=== PATIENT | female | born 1960 | race Caucasian/White ===

== ENCOUNTER 2020-01-21 11:14 | Outpatient (CLI) | payer BC, OTHER, SELFPAY ==
[2020-01-21 12:27] LABS: Basophils Percent Auto 0.6 % (0.2-1.2); Eosinophils Absolute Auto 0.1 K/mm3 (0-0.3); Eosinophils Percent Auto 1.7 % (0-4.4); Hematocrit 43.7 % (37.0-47.0); Hemoglobin 14.1 g/dL (12.0-15.0); Immature Granulocyte Absolute 0.02 K/mm3 (0.00-0.031); Immature Granulocyte Percent A 0.3 % (0-0.5); Lymphocytes Absolute Auto 2.35 K/mm3 (0.9-3.2); Lymphocytes Percent Auto 33.5 % (18.3-44.2); Mean Corpuscular HGB Conc 32.3 g/dl (32-36); Mean Corpuscular Hemoglobin 29.1 pg (26-34); Mean Corpuscular Volume 90.1 fl (80-100); Mean Platelet Volume 10.4 fl (7.4-10.4); Monocytes Absolute Auto 0.6 K/mm3 (0.1-0.6); Monocytes Percent Auto 8.1 % (2.6-8.5); Neutrophils Absolute Auto 3.9 K/mm3 (1.3-6.7); Neutrophils Percent Auto 55.8 % (45.5-73.1); Platelet Count Result 177 k/mm3 (150-375); Red Blood Count 4.85 M/mm3 (4.2-5.4); Red Cell Distribution Width 13.2 % (11.5-14.5)
[2020-01-21 12:40] LABS: Alanine Aminotransferase 16 U/L (4-35); Albumin Level 4.6 g/dL (3.5-5.1); Alkaline Phosphatase 70 U/L (38-126); Anion Gap 8 mmol/L (8-16); Aspartate Amino Transferase 23 U/L (14-36); Bilirubin,Total 0.3 mg/dL (0.2-1.3); Blood Urea Nitrogen 15 mg/dL (7-17); Calcium 9.6 mg/dL (8.4-10.2); Carbon Dioxide 29 mmol/L (22-30); Chloride 102 mmol/L (98-107); Cholesterol 171 mg/dL (0-200); Estimated Glomerular Filt Rate > 60; Glucose 94 mg/dL (65-105); HDL Direct 47 mg/dL; Potassium 4.6 mmol/L (3.4-5.0); Sodium 139 mmol/L (137-145); Triglycerides 115 mg/dL (<150)
[2020-01-21 12:51] LABS: LDL Cholesterol Direct 85 mg/dL
[2020-01-25 01:06] LABS: Vitamin D 1,25 (OH)2 Total 53 pg/mL (18-72); Vitamin D2 1,25 (OH)2 <8 pg/mL; Vitamin D3 1,25 (OH)2 53 pg/mL
== END 2020-01-21 11:15 | disposition home or self-care (01) ==
LOC: ANHLAB 11:17
PROVIDERS: PCP Family Medicine; Visit Provider Family Medicine
DX: J44.9 Chronic obstructive pulmonary disease, unspecified (principal); R53.83 Other fatigue; Z85.118 Personal history of other malignant neoplasm of bronchus and lung; Z13.220 Encounter for screening for lipoid disorders
CPT/HCPCS: 36415; 80053; 80061; 82652; 84443; 85025

== ENCOUNTER 2020-02-28 00:11 | Outpatient (CLI) | payer OTHER, SELFPAY ==
[2020-02-28 19:58] LABS: SARS-CoV-2 RNA PCR Negative
== END 2020-02-28 00:12 | disposition home or self-care (01) ==
LOC: ANHCOVIDDT 00:11
PROVIDERS: PCP Family Medicine; Visit Provider Internal Medicine Gastroenterology
DX: Z01.812 Encounter for preprocedural laboratory examination (principal); Z20.828 Contact with and (suspected) exposure to other viral communicable diseases
CPT/HCPCS: 87635; C9803; U0003

== ENCOUNTER 2020-03-01 02:07 | Day surgery (SDC) | payer OTHER, SELFPAY ==
[2020-02-23 13:36] VITALS: BMI 27.6
[2020-03-01 08:35] VITALS: BP 124/97; PULSE 85; RESP 18; TEMP 36.3; O2SAT 99; BMI 27.6
[2020-03-01] MEDS: LACTATED RINGERS 1,000 ML 150 ML IV CONT (08:43)
--- NOTE | 2020-03-01 08:52 | WPDANESEPPF ---
Anes - Initial Pre Proc Eval Procedure: Operation Date: 03/01/20 10:00 Proposed Procedures p Screening Colonoscopy - Berhane Messina MD Date/Time: 03/01/20 08:52 Surgeon: Berhane Messina MD Pre Op Diagnosis: neoplasm screening Patient Data Age: 59 Gender: F Height: 5 ft 4 in Weight: 73 kg Last Vital Signs Temp 36.3 C L 03/01/20 08:35 Pulse 85 03/01/20 08:35 Resp 18 03/01/20 08:35 BP 124/97 H 03/01/20 08:35 Pulse Ox 99 03/01/20 08:35 Allergies Allergy/AdvReac Type Severity Reaction Status Date / Time Sulfa (Sulfonamide Allergy Severe HIVES AND Verified 03/01/20 08:34 Antibiotics) THROAT SWELLING tuberculin, purified protein Allergy Severe TB SKIN Verified 03/01/20 08:34 deriva TEST= SEVERE HIVES,DIFFICULTY BREATHING Home Medications Medication Instructions Recorded Confirmed Type umeclidinium 62.5 mcg/actuation 1 inh INHALATION DAILY #3 each 01/17/20 02/23/20 Rx blister powder for inhalation varenicline 1 mg tablet 1 mg PO BID #180 tablet 01/17/20 02/23/20 Rx peg 3350-electrolytes 236 240 ml PO Q10M #4000 ml 01/18/20 Rx gram-22.74 gram-6.74 gram-5.86 gram solution Patient hx anesthesia problems: none Family hx anesthesia problems: none PMFSH Past Medical History Medical History COPD (chronic obstructive pulmonary disease) COPD (chronic obstructive pulmonary disease) FHx: colon cancer Lung cancer Tobacco abuse Family History Family History Grandparent Family history of malignant neoplasm of breast Family history of malignant neoplasm of ovary Mother Family history of malignant neoplasm of breast in first degree relative Family history of malignant neoplasm of ovary, Onset Age: 70 Father Family history of emphysema Other Family history of malignant neoplasm of male breast Social History Social History Social History: Smoking packs per day: 1 Smoking cigarettes per day: 20.0 Years smoked: 45 Smoking pack-years: 45.00 Smoking status: Current every day smoker Tobacco type: cigarettes Second hand tobacco smoke exposure: No Smoking end date: 04/28/14 Alcohol intake: never Substance use: current Substance use type: does not use Living arrangements: with family Gender identity (if verbalized by the patient): Female Spiritual care concerns: No Anes - Eval Final PreProcedure Day of Procedure 03/01/20 08:52 Patient weight: overweight Heart: regular rate and rhythm Lungs: decreased breath sounds Airway: Mallampati scale class II Neurological: alert and oriented Last oral intake: >/= 8 hours ASA classification: III Emergent: no Anesthetic plan: proceed Anesthesia type and monitoring: general GIVS and standard monitoring Informed Consent: The patient's anesthetic plan and its attendant risks and benefits were discussed with the patient/family/POA. Questions were solicited and answers provided to the satisfaction of the patient/family/POA.
--- NOTE | 2020-03-01 09:38 | PM.HPGS ---
History of Present Illness History of Present Illness Consent: Risks, benefits, and alternatives have been discussed and questions answered. Patient agrees to proceed with procedure. Chief complaint: neoplasm screening Narrative: Yandy Echevarria is a 59 year old female with colon polyps about 5 years ago. Review of Systems Constitutional: Constitutional: Denies headache(s) and Denies weakness Eyes: Eyes: Denies blurry vision ENT: Reports Normal hearing present, Denies headache(s) and Denies neck pain Cardiovascular: Cardiovascular: Denies chest pain and Denies dyspnea Respiratory: Respiratory: Denies dyspnea Gastrointestinal: Gastrointestinal: Reports no additional gastrointestinal complaints Genitourinary: Genitourinary: Denies dysuria Musculoskeletal: Musculoskeletal: Denies neck pain Integumentary/Breasts: Skin/Breast: Denies dry skin Neurologic: Reports Normal hearing present, Denies headache(s) and Denies weakness Psychiatric: Psychiatric: Denies anxiety Endocrine: Endocrine: Denies change in body appearance Hematologic/Lymphatic: Hematologic/Lymphatic: Denies easy bleeding Allergic/Immunologic: Allergic/Immunologic: Denies urticaria PMFSH Past Medical History Medical History COPD (chronic obstructive pulmonary disease) COPD (chronic obstructive pulmonary disease) FHx: colon cancer Lung cancer Tobacco abuse Family History Family History Grandparent Family history of malignant neoplasm of breast Family history of malignant neoplasm of ovary Mother Family history of malignant neoplasm of breast in first degree relative Family history of malignant neoplasm of ovary, Onset Age: 70 Father Family history of emphysema Other Family history of malignant neoplasm of male breast Social History Social History Social History: Smoking packs per day: 1 Smoking cigarettes per day: 20.0 Years smoked: 45 Smoking pack-years: 45.00 Smoking status: Current every day smoker Tobacco type: cigarettes Second hand tobacco smoke exposure: No Smoking end date: 04/28/14 Alcohol intake: never Substance use: current Substance use type: does not use Living arrangements: with family Gender identity (if verbalized by the patient): Female Spiritual care concerns: No Meds Home Medications and Allergies Home Medications Medication Instructions Recorded Confirmed Type umeclidinium 62.5 mcg/actuation 1 inh INHALATION DAILY #3 each 01/17/20 02/23/20 Rx blister powder for inhalation varenicline 1 mg tablet 1 mg PO BID #180 tablet 01/17/20 02/23/20 Rx peg 3350-electrolytes 236 240 ml PO Q10M #4000 ml 01/18/20 Rx gram-22.74 gram-6.74 gram-5.86 gram solution Allergies Allergy/AdvReac Type Severity Reaction Status Date / Time Sulfa (Sulfonamide Allergy Severe HIVES AND Verified 03/01/20 08:34 Antibiotics) THROAT SWELLING tuberculin, purified protein Allergy Severe TB SKIN Verified 03/01/20 08:34 deriva TEST= SEVERE HIVES,DIFFICULTY BREATHING Vital Signs Vital Signs - 24 hr 03/01/20 08:35 Temperature 97.3 F L Pulse Rate 85 Respiratory Rate 18 Blood Pressure 124/97 H Pulse Oximetry 99 Exam Const: General: comfortable and no acute distress HENMT: General nose exam: Normal nares present Eyes: General: appearance normal, both eyes and all related structures Neck: Neck: no JVD Resp: Auscultation: clear to auscultation bilaterally Cardio: Rate: regular rate Rhythm: regular rhythm GI: Inspection: non-distended GI Palp: Yes Soft to palpation Skin: General skin exam: normal color Neuro: General: gait normal Speech: normal speech Extrem: General: normal to inspection Psych: Mental Status: mental status grossly normal Asses
[2020-03-01 10:00] VITALS: BP 131/80; PULSE 84; RESP 14; O2SAT 100
[2020-03-01 10:10] VITALS: BP 126/78; PULSE 71; RESP 18; O2SAT 100
[2020-03-01 10:20] VITALS: BP 118/78; PULSE 72; RESP 22; O2SAT 99
== END 2020-03-01 10:32 | disposition home or self-care (01) ==
PROVIDERS: PCP Family Medicine; Visit Provider Internal Medicine Gastroenterology
PROC: 0DJD8ZZ Inspection of Lower Intestinal Tract, Via Natural or Artificial Opening Endoscopic (ICD-10-PCS; CPT 45378; principal; 2020-03-01 10:00)
DX: Z12.11 Encounter for screening for malignant neoplasm of colon (principal); K64.4 Residual hemorrhoidal skin tags; K64.8 Other hemorrhoids; Z86.010 Personal history of colon polyps; Z80.0 Family history of malignant neoplasm of digestive organs; J44.9 Chronic obstructive pulmonary disease, unspecified; Z85.118 Personal history of other malignant neoplasm of bronchus and lung; F17.210 Nicotine dependence, cigarettes, uncomplicated
CPT/HCPCS: 45378; J2001; J2704; J7120

== ENCOUNTER 2021-10-05 10:24 | Outpatient (CLI) | payer OTHER, SELFPAY ==
[2021-10-05 10:45] LABS: Basophils Percent Auto 0.6 % (0.2-1.2); Eosinophils Absolute Auto 0.2 K/mm3 (0-0.3); Eosinophils Percent Auto 2.6 % (0-4.4); Hematocrit 42.8 % (37.0-47.0); Hemoglobin 13.7 g/dL (12.0-15.0); Immature Granulocyte Absolute 0.02 K/mm3 (0.00-0.031); Immature Granulocyte Percent A 0.3 % (0-0.5); Lymphocytes Absolute Auto 1.78 K/mm3 (0.9-3.2); Lymphocytes Percent Auto 27.7 % (18.3-44.2); Mean Corpuscular Hemoglobin 28.2 pg (26-34); Mean Corpuscular Volume 88.1 fl (80-100); Monocytes Absolute Auto 0.6 K/mm3 (0.1-0.6); Monocytes Percent Auto 9.8 % (2.6-8.5); Neutrophils Absolute Auto 3.8 K/mm3 (1.3-6.7); Platelet Count Result 193 k/mm3 (150-375); Red Blood Count 4.86 M/mm3 (4.2-5.4); Red Cell Distribution Width 13.3 % (11.5-14.5); White Blood Count 6.4 K/mm3 (4.5-10.0)
[2021-10-05 11:00] LABS: Alanine Aminotransferase 18 U/L (6-35); Albumin Level 4.7 g/dL (3.5-5.1); Anion Gap 7 mmol/L (8-16); Aspartate Amino Transferase 22 U/L (14-36); Bilirubin,Total 0.3 mg/dL (0.2-1.3); Blood Urea Nitrogen 16 mg/dL (7-17); Calcium 9.1 mg/dL (8.4-10.2); Carbon Dioxide 30 mmol/L (22-30); Chloride 103 mmol/L (98-107); Cholesterol 190 mg/dL (0-200); Estimated Glomerular Filt Rate 56; Glucose 109 mg/dL (65-110); HDL Direct 49 mg/dL; Sodium 140 mmol/L (137-145); Triglycerides 142 mg/dL (<150)
[2021-10-05 11:10] LABS: LDL Cholesterol Direct 91 mg/dL
[2021-10-05 11:15] LABS: Alkaline Phosphatase 62 U/L (38-126)
[2021-10-10 00:19] LABS: Vitamin D 1,25 (OH)2 Total 55 pg/mL (18-72); Vitamin D2 1,25 (OH)2 <8 pg/mL; Vitamin D3 1,25 (OH)2 55 pg/mL
== END 2021-10-05 10:25 | disposition home or self-care (01) ==
LOC: ANHLAB 10:26
PROVIDERS: PCP Family Medicine; Visit Provider Family Medicine
DX: Z13.21 Encounter for screening for nutritional disorder (principal); I10 Essential (primary) hypertension; E03.9 Hypothyroidism, unspecified; E78.2 Mixed hyperlipidemia; K21.9 Gastro-esophageal reflux disease without esophagitis
CPT/HCPCS: 36415; 80053; 80061; 82607; 82652; 84443; 85025

== ENCOUNTER → 2022-01-07 12:13 | Outpatient (CLI) | payer OTHER, SELFPAY ==
--- NOTE | ~2022-01-07 | DEXA_ITS ---
Bone Density Report Name: CHAUNCEY BRADSHAW Age: 61 Sex: Female Ethnicity: White Date of : 1960 Indication: postmenopausal; screening for osteoporosis; height loss; asthma or emphysema; hysterectomy; Referring Provider: NATALIA LAGUNAS Study: Bone densitometry was performed. Exam Date: January 07, 2022 Accession number: [id number] Bone Density: Region BMD T-score Z-score Classification AP Spine (L1-L4) 0.701 -3.1 -1.5 Osteoporosis Femoral Neck (Left) 0.720 -1.2 0.3 Osteopenia Total Hip (Left) 0.867 -0.6 0.5 Normal Femoral Neck (Right) 0.689 -1.4 0.0 Osteopenia Total Hip (Right) 0.799 -1.2 0.0 Osteopenia Total Hip Mean 0.833 -0.9 0.3 Normal World Health Organization criteria for BMD impression classify patients as: Normal (T-score at or above -1.0), Osteopenia (T-score between -1.0 and -2.5), or Osteoporosis (T-score at or below -2.5). 10-year Fracture Risk: FRAX not reported because: Some T-score for Spine Total or Hip Total or Femoral Neck at or below -2.5 Clinical Information Provided by Patient: Smokes Has the following medical conditions: Asthma or Emphysema, Hysterectomy Patient maximum height was 65 Menopause Age: 40 No regular weight bearing exercise Does not regularly consume dairy products Drinks caffeinated beverages Onset of menses at age 13 Number of children 3 Impression: The patient has osteoporosis, based on the Total Spine T-score. The patient has risk factors, including: smoking. Discussion: INCREASED RISK OF FRACTURE. BONE DENSITY IS UNDESIRABLY LOW AT ONE OR MORE SKELETAL SITES, CONSISTENT WITH POSTMENOPAUSAL OSTEOPOROSIS. This patient's lowest T-score meets the World Health Organization's (WHO) criteria for osteoporosis at one or more sites (T-score -2.5 or below). In untreated patients, the risk of osteoporotic fracture increases approximately two-fold for each 1.0 SD decrease in T-score. Low bone density is not the only risk factor for fracture; also consider factors such as patient's age, frailty or poor health, risk of falling, risk of injury, previous osteoporotic fracture, family history of osteoporosis, cigarette smoking, low body weight, etc. Not everyone with low bone mineral density has osteoporosis; osteomalacia and other metabolic bone disorders should also be considered. Patients who have osteoporosis should be evaluated for specific diseases and conditions (secondary causes) that may cause or contribute to bone loss. The [place] [employer]ocrinologists (AACE) and National Osteoporosis Foundation (NOF) recommend pharmacologic intervention for all postmenopausal women whose T-score is in this range. The patient should follow a healthful lifestyle (good nutrition with adequate calcium and vitamin D, and appropriate weight-bearing exercise).
== END ==
PROVIDERS: PCP Family Medicine; Visit Provider Family Medicine
DX: Z78.0 Asymptomatic menopausal state (principal); M85.89 Other specified disorders of bone density and structure, multiple sites; M81.0 Age-related osteoporosis without current pathological fracture
CPT/HCPCS: 77080

== ENCOUNTER 2022-10-17 11:20 | Outpatient (CLI) | payer OTHER, SELFPAY ==
[2022-10-17 11:50] LABS: Basophils Absolute Auto 0.1 K/mm3 (0.0-0.1); Basophils Percent Auto 0.8 % (0.2-1.2); Eosinophils Absolute Auto 0.1 K/mm3 (0-0.3); Hematocrit 42.7 % (37.0-47.0); Hemoglobin 13.5 g/dL (12.0-15.0); Immature Granulocyte Absolute 0.02 K/mm3 (0.00-0.031); Immature Granulocyte Percent A 0.3 % (0-0.5); Lymphocytes Absolute Auto 1.73 K/mm3 (0.9-3.2); Lymphocytes Percent Auto 28.9 % (18.3-44.2); Mean Corpuscular HGB Conc 31.6 g/dl (32-36); Mean Corpuscular Hemoglobin 28.4 pg (26-34); Mean Corpuscular Volume 89.7 fl (80-100); Mean Platelet Volume 10.4 fl (7.4-10.4); Monocytes Absolute Auto 0.5 K/mm3 (0.1-0.6); Monocytes Percent Auto 8.2 % (2.6-8.5); Neutrophils Absolute Auto 3.6 K/mm3 (1.3-6.7); Neutrophils Percent Auto 59.8 % (45.5-73.1); Platelet Count Result 198 k/mm3 (150-375); Red Blood Count 4.76 M/mm3 (4.2-5.4); Red Cell Distribution Width 12.8 % (11.5-14.5)
[2022-10-17 12:20] LABS: Alanine Aminotransferase 19 U/L (6-35); Albumin Level 4.4 g/dL (3.5-5.1); Alkaline Phosphatase 58 U/L (38-126); Anion Gap 6 mmol/L (8-16); Aspartate Amino Transferase 25 U/L (14-36); Bilirubin,Total 0.4 mg/dL (0.2-1.3); Blood Urea Nitrogen 19 mg/dL (7-17); Calcium 9.3 mg/dL (8.4-10.2); Carbon Dioxide 32 mmol/L (22-30); Chloride 100 mmol/L (98-107); Cholesterol 187 mg/dL (0-200); Estimated Glomerular Filt Rate 50; Glucose 106 mg/dL (65-110); HDL Direct 47 mg/dL; Potassium 4.6 mmol/L (3.4-5.0); Sodium 138 mmol/L (137-145); Triglycerides 144 mg/dL (<150)
[2022-10-17 12:31] LABS: LDL Cholesterol Direct 108 mg/dL
== END 2022-10-17 11:21 | disposition home or self-care (01) ==
PROVIDERS: PCP Family Medicine; Visit Provider Family Medicine
DX: E78.2 Mixed hyperlipidemia (principal); J44.9 Chronic obstructive pulmonary disease, unspecified
CPT/HCPCS: 36415; 80053; 80061; 85025

== ENCOUNTER 2022-11-08 07:37 | Outpatient (CLI) | payer OTHER, SELFPAY ==
--- NOTE | ~2022-11-08 | CT_ITS ---
EXAMINATION: CT chest high resolution wo co DATE: 11/08/2022 07:53 INDICATION: History of lung cancer TECHNIQUE: Computed tomography (CT) of the chest was performed without intravenous contrast. The dose -length product (DLP) was 146.29 mGy-cm. 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 COMPARISON: 01/12/2019 FINDINGS: There are changes of right partial pneumonectomy. Severe emphysema is noted. The lungs are free of acute opacities. No pleural effusion or pneumothorax. Calcified subcarinal lymph nodes are co nsistent with old granulomatous disease. Bilateral breast implants are noted. No pathologically enlar ged thoracic lymph nodes are identified. The heart size is normal. There is calcified coronary artery atherosclerosis. Subendocardial fat deposition in the left ventricular apex suggests prior myocardia l infarction. There is mild thoracic spondylosis. IMPRESSION: 1. Changes of partial right pneumonectomy without acute cardiopulmonary abnormality. Reviewed, dictated and finalized at location B. IMPRESSION: 1. Changes of partial right pneumonectomy without acute cardiopulmonary abnorma lity.
== END 2022-11-08 07:38 | disposition home or self-care (01) ==
LOC: ANHIMG 07:40
PROVIDERS: PCP Family Medicine; Visit Provider Family Medicine
DX: Z85.118 Personal history of other malignant neoplasm of bronchus and lung (principal); F17.210 Nicotine dependence, cigarettes, uncomplicated; R91.8 Other nonspecific abnormal finding of lung field
CPT/HCPCS: 71250

== ENCOUNTER 2023-01-16 10:26 | Outpatient (CLI) | payer OTHER, SELFPAY ==
[2023-01-16 11:24] LABS: Alanine Aminotransferase 19 U/L (6-35); Albumin Level 4.3 g/dL (3.5-5.1); Alkaline Phosphatase 52 U/L (38-126); Anion Gap 3 mmol/L (8-16); Aspartate Amino Transferase 23 U/L (14-36); Bilirubin,Total 0.5 mg/dL (0.2-1.3); Blood Urea Nitrogen 11 mg/dL (7-17); Calcium 8.9 mg/dL (8.4-10.2); Carbon Dioxide 31 mmol/L (22-30); Chloride 104 mmol/L (98-107); Cholesterol 156 mg/dL (0-200); Estimated Glomerular Filt Rate > 60; Glucose 118 mg/dL (65-110); HDL Direct 43 mg/dL; Sodium 138 mmol/L (137-145); Triglycerides 98 mg/dL (<150)
[2023-01-16 11:35] LABS: LDL Cholesterol Direct 80 mg/dL
== END 2023-01-16 10:27 | disposition home or self-care (01) ==
LOC: ANHLAB 10:27
PROVIDERS: PCP Family Medicine; Visit Provider Internal Medicine Cardiovascular Disease
DX: E78.5 Hyperlipidemia, unspecified (principal)
CPT/HCPCS: 36415; 80053; 80061

== ENCOUNTER 2023-09-04 11:22 | Outpatient (CLI) | payer MEDICARE, OTHER, SELFPAY ==
[2023-09-04 12:02] LABS: Basophils Absolute Auto 0.1 K/mm3 (0.0-0.1); Basophils Percent Auto 0.7 % (0.2-1.2); Eosinophils Absolute Auto 0.2 K/mm3 (0-0.3); Eosinophils Percent Auto 2.9 % (0-4.4); Hematocrit 43.7 % (37.0-47.0); Hemoglobin 13.4 g/dL (12.0-15.0); Immature Granulocyte Absolute 0.02 K/mm3 (0.00-0.031); Immature Granulocyte Percent A 0.3 % (0-0.5); Lymphocytes Percent Auto 29.1 % (18.3-44.2); Mean Corpuscular HGB Conc 30.7 g/dl (32-36); Mean Corpuscular Hemoglobin 28.3 pg (26-34); Mean Corpuscular Volume 92.4 fl (80-100); Mean Platelet Volume 10.2 fl (7.4-10.4); Monocytes Absolute Auto 0.6 K/mm3 (0.1-0.6); Monocytes Percent Auto 8.5 % (2.6-8.5); Neutrophils Absolute Auto 4.4 K/mm3 (1.3-6.7); Neutrophils Percent Auto 58.5 % (45.5-73.1); Platelet Count Result 202 k/mm3 (150-375); Red Blood Count 4.73 M/mm3 (4.2-5.4); Red Cell Distribution Width 12.6 % (11.5-14.5); White Blood Count 7.6 K/mm3 (4.5-10.0)
[2023-09-04 12:12] LABS: Alanine Aminotransferase 16 U/L (6-35); Albumin Level 4.7 g/dL (3.5-5.1); Alkaline Phosphatase 58 U/L (38-126); Anion Gap 5 mmol/L (4-12); Aspartate Amino Transferase 22 U/L (14-36); Bilirubin,Total 0.4 mg/dL (0.2-1.3); Blood Urea Nitrogen 13 mg/dL (7-17); Calcium 9.4 mg/dL (8.4-10.2); Carbon Dioxide 30 mmol/L (22-30); Chloride 105 mmol/L (98-107); Cholesterol 174 mg/dL (0-200); Estimated Glomerular Filt Rate 56; Glucose 94 mg/dL (65-110); HDL Direct 56 mg/dL; Potassium 4.4 mmol/L (3.4-5.0); Sodium 140 mmol/L (137-145); Triglycerides 75 mg/dL (<150)
[2023-09-04 12:25] LABS: LDL Cholesterol Direct 96 mg/dL
== END 2023-09-04 11:23 | disposition home or self-care (01) ==
LOC: ANHLAB 11:26
PROVIDERS: PCP Family Medicine; Visit Provider Family Medicine
DX: J44.9 Chronic obstructive pulmonary disease, unspecified (principal); E78.2 Mixed hyperlipidemia; I25.10 Atherosclerotic heart disease of native coronary artery without angina pectoris; Z85.118 Personal history of other malignant neoplasm of bronchus and lung
CPT/HCPCS: 36415; 80053; 80061; 84443; 85025

== ENCOUNTER 2023-11-12 00:06 | Day surgery (SDC) | payer MEDICARE, OTHER, SELFPAY ==
[2023-11-07 12:27] VITALS: BMI 28.7
--- NOTE | 2023-11-07 12:36 | PC.NURSE ---
Report to the Outpatient Waiting Room, entrance under the green pavilion located off [facility], at time _1015_ on date _[id number]_. Planned Procedure Time: _1215_. Time changes happen often and if your time is changed the preop area will call you the afternoon before. - You and your visitor will be asked to self-screen and do not enter if you have any COVID symptoms. - A mask is optional within the hospital at this time. May have clear liquids (water, carbonated beverages, clear teas, apple juice) until 415amday of surgery with a maximum of 20 ounces. - No food from midnight until time of surgery, No drink after 415am. Take the following medications with a SIP of water the morning of surgery: ___Breztri DO NOT STOP ANY OF YOUR OTHER PRESCRIPTION MEDICATIONS PRIOR TO SURGERY ?EXCEPT THE FOLLOWING Medications to discontinue per physician Calcium with D3 Date to take last [id number] Please no make-up, nail armenian, hairspray, perfume, deodorant, or body powder the day of surgery. No jewelry (including any body piercings) or valuables the day of surgery, leave them at home. Please take a shower or bath the night before, or the morning of, surgery with an antibacterial soap. Wear comfortable, loose fitting clothing. - Jewelry must be removed prior to entering the operating room. Rings and piercings that are not removed may be cut off. - The hospital will not accept responsibility for valuables. - Please leave all valuables, including medications, at home the day of surgery. If you are going home after surgery, a licensed [employer] driver must drive you home. - NO public transportation without another adult if you receive anesthesia. - We recommend that an adult stay with you for 24 hours following discharge. - We also recommend that you do not drive, make important decision, drink alcoholic beverages, or take any drugs that were not prescribed by your health care provider for at least 24 hours after your discharge time. Follow any additional instructions given to you from your surgeon. If you or anyone in your household have experienced Covid symptoms in the past week, please notify your surgeon or the nurse liaison at the phone number below for possible testing. Telephone instructions given to _Randye__and asked if any additional questions and then verbalized understanding. Patient advised to call surgeon office or pre surgery nurse liaison [phone] if any additional questions.
--- NOTE | 2023-11-12 06:48 | WPDHPUPDATE1 ---
History and Physical Update Update Date/Time: 11/12/23 06:48 Patient seen and examined in pre-operative holding area. No interval change in medical history or symptoms. Patient recalls previous discussion of benefits and alternatives to procedure. Continues to desire to proceed with left dorsal wrist ganglion excision and left cubital tunnel release. Reviewed procedure, post-op expectations and risks including but not limited to bleeding, recurrence, infection, injury to tendon/nerve/vessel, decreased hand function, stiffness, RSD, no change or worsening of symptoms. I discussed the possible use of assistants and their participation in the case. Patient stated understanding and signed the consent form wishing to proceed.
--- NOTE | 2023-11-12 06:49 | PM.HPGS ---
History of Present Illness History of Present Illness Chief complaint: ganglion multiple sites, lesion ulnar nerve Narrative: Patient seen and examined in pre-operative holding area. No interval change in medical history or symptoms. Patient recalls previous discussion of benefits and alternatives to procedure. Continues to desire to proceed with left dorsal wrist ganglion excision and left cubital tunnel release. Reviewed procedure, post-op expectations and risks including but not limited to bleeding, infection, injury to tendon/nerve/vessel, decreased hand function, stiffness, RSD, no change or worsening of symptoms, recurrence. I discussed the possible use of assistants and their participation in the case. Patient stated understanding and signed the consent form wishing to proceed. Review of Systems Review of Systems: All systems reviewed & are unremarkable except as noted in HPI and below PMFSH Past Medical History Medical History Acute bronchospasm Acute left-sided low back pain without sciatica Age-related osteoporosis without current pathological fracture BRCA gene mutation positive Breast implant status Chronic ethmoidal sinusitis COPD (chronic obstructive pulmonary disease) COPD (chronic obstructive pulmonary disease) Encounter for screening colonoscopy Essential (primary) hypertension Ganglion cyst of dorsum of left wrist Gastro-esophageal reflux disease without esophagitis Generalized anxiety disorder History of chemotherapy History of ganglion cyst History of lung cancer Lipid screening Lung cancer Malignant neoplasm of upper lobe of right lung Mixed hyperlipidemia Nicotine dependence, unspecified, uncomplicated Numbness of left hand Postmenopausal Respiratory distress Tobacco abuse Tobacco abuse Trochanteric bursitis of left hip Surgical History Surgical History H/O bilateral mastectomy Hx of breast implants, bilateral S/P lobectomy of lung S/P AYAN (total abdominal hysterectomy) Family History Family History Grandparent Family history of malignant neoplasm of breast Family history of malignant neoplasm of ovary Mother Family history of malignant neoplasm of breast in first degree relative Family history of malignant neoplasm of ovary, Onset Age: 70 Father Family history of emphysema Other Family history of malignant neoplasm of male breast Social History Social History Social History: Years smoked: 50 Smoking status: Current every day smoker Tobacco type: cigarettes Second hand tobacco smoke exposure: No Smoking end date: 03/01/20 Alcohol intake: never Substance use: current Substance use type: does not use Do You Feel Safe in your Home?: Yes Lack of Transportation: No Lack of Food: Never True Current Housing: I Have Housing Concerned About Future Housing: No Difficulty Paying Gas/Electric Bills: No Difficulty Paying for Meds: No Currently Unemployed: YES Education: Associate Degree Difficulty w/ Childcare or Family Care: No Living arrangements: with family Occupation/Education: retired Gender identity (if verbalized by the patient): Female Sexual Orientation (if Verbalized by the Patient): Straight or Heterosexual Spiritual care concerns: No Meds Home Medications and Allergies Home Medications Medication Instructions Recorded Confirmed Type denosumab 60 mg/mL subcutaneous 60 mg subcut [id number] #1 mL 10/17/22 11/07/23 Rx syringe (Prolia) budesonide 160 mcg-glycopyr 9 See Rx Instructions .Route 08/15/23 11/12/23 Rx mcg-formot 4.8 mcg/actuation HFA .COMPLEX #10.7 grams inhaler (Breztri Aerosphere) pravastatin 10 mg tablet See Rx Instructions .Route 08/15/23 11/12/23 Rx .COMPL
--- NOTE | 2023-11-12 06:50 | W.PM.PROC2 ---
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 The patient signed the consent form. PROCEDURE IN DETAIL: The patient taken back to OR on the stretcher in supine position. Time out performed with anesthesia, surgeon and staff agreeing on patient's name site and surgery to be performed SCDs were placed on the lower extremities and inflated A tourniquet was placed on {left} upper extremity and antibiotics given IV After anesthesia administered sedation I injected {10}cc 1%lido with epi and 0.5% marcaine plain at the operative sites The?{left upper extremity}?was prepped and draped in sterile fashion the??{left upper extremity} was??exsanguinated with Esmarch bandage and tourniquet inflated to 250mmHg I next proceeded with making a longitudinal incision between two heads for flexor carpi ulnaris at end of {left} cubital tunnel with 15 blade scalpel.? Littler scissors were used to spread down to FCU fascia.? An incision was made in FCU fascia and ulnar nerve identified exiting cubital tunnel.? I proceeded with complete retrograde release of the cubital tunnel including 7cm proximal for the intermuscular septum.? The nerve appeared healthy with visible vaso nervorum.? There was no subluxation on full elbow range of motion. ? I irrigated with normal saline and closure with 4-0 monocryl for dermis and subcuticular. I next proceeded with making a longitudinal incision over the left dorsal wrist ganglion with 15 blade through skin and dermis. Littler scissors were used to spread circumferentially down through and around the ganglion cyst and scar tissue from previous surgeries. I proceeded with identifying the stalk coming from dorsal wrist capsule. The cyst was transected with bipolar cautery at the base. I irrigated with normal saline and repaire the capsular defect with 4-0 vicryl sutures. Skin was closed with 4-0 vicrly and 4-0 monocryl. The incisions were covered with Dermabond then 4x4s, flaco, and a posterior elbow splint and volar wrist splint for patient safety, security and comfort and secured with alyssa bandages after the tourniquet was let down noting the hand was warm and well perfused.? Patient awaken from anesthesia and transferred to recovery in stable condition Complications - none EBL- 1cc Disposition - home in stable conditions Rochelle feliz pa-c wass essential for positioning, retraction, ,closure and dressing placement [facility] Billing Surgery - Charge Forward: Surgery Billing ([id number] same for rochelle adding )
[2023-11-12 11:03] VITALS: BP 132/79; PULSE 85; RESP 16; TEMP 36.5; O2SAT 98; BMI 27.8
--- NOTE | 2023-11-12 11:05 | WPDANESEPPF ---
Anes - Initial Pre Proc Eval Procedure: Operation Date: 11/12/23 12:15 Proposed Procedures p Left Dorsal Ganglion Excision, - Ruma Garcia MD s Left Cubital Tunnel Release - Ruma Garcia MD Date/Time: 11/12/23 11:05 Surgeon: Ruma Garcia MD Pre Op Diagnosis: ganglion multiple sites, lesion ulnar nerve Patient Data Age: 63 Gender: F Height: 1.63 m Weight: 75.9 kg Allergies Allergy/AdvReac Type Severity Reaction Status Date / Time Sulfa (Sulfonamide Allergy Severe HIVES AND Verified 11/12/23 10:59 Antibiotics) THROAT SWELLING tuberculin, purified protein Allergy Severe TB SKIN Verified 11/12/23 10:59 deriva TEST= SEVERE HIVES,DIFFICULTY BREATHING alendronate sodium Allergy Intermediate bone ache Verified 11/12/23 10:59 Home Medications Medication Instructions Recorded Confirmed Type denosumab 60 mg/mL subcutaneous 60 mg subcut [id number] #1 mL 10/17/22 11/07/23 Rx syringe (Prolia) budesonide 160 mcg-glycopyr 9 See Rx Instructions .Route 08/15/23 11/12/23 Rx mcg-formot 4.8 mcg/actuation HFA .COMPLEX #10.7 grams inhaler (Breztri Aerosphere) pravastatin 10 mg tablet See Rx Instructions .Route 08/15/23 11/12/23 Rx .COMPLEX #90 tabs calcium carbonate 500 mg-vitamin 1 tablet PO DAILY 11/07/23 11/12/23 History D3 3.125 mcg (125 unit) tablet tramadol 50 mg tablet 50 mg PO Q6H PRN pain #12 tabs 11/12/23 Rx Patient hx anesthesia problems: none Family hx anesthesia problems: none Results Review: All pre-operative results and documents have been reviewed as part of the pre-operative evaluation. [facility] Past Medical History Medical History Acute bronchospasm Acute left-sided low back pain without sciatica Age-related osteoporosis without current pathological fracture BRCA gene mutation positive Breast implant status Chronic ethmoidal sinusitis COPD (chronic obstructive pulmonary disease) COPD (chronic obstructive pulmonary disease) Encounter for screening colonoscopy Essential (primary) hypertension Ganglion cyst of dorsum of left wrist Gastro-esophageal reflux disease without esophagitis Generalized anxiety disorder History of chemotherapy History of ganglion cyst History of lung cancer Lipid screening Lung cancer Malignant neoplasm of upper lobe of right lung Mixed hyperlipidemia Nicotine dependence, unspecified, uncomplicated Numbness of left hand Postmenopausal Respiratory distress Tobacco abuse Tobacco abuse Trochanteric bursitis of left hip Surgical History Surgical History H/O bilateral mastectomy Hx of breast implants, bilateral S/P lobectomy of lung S/P AYAN (total abdominal hysterectomy) Family History Family History Grandparent Family history of malignant neoplasm of breast Family history of malignant neoplasm of ovary Mother Family history of malignant neoplasm of breast in first degree relative Family history of malignant neoplasm of ovary, Onset Age: 70 Father Family history of emphysema Other Family history of malignant neoplasm of male breast Social History Social History Social History: Years smoked: 50 Smoking status: Current every day smoker Tobacco type: cigarettes Second hand tobacco smoke exposure: No Smoking end date: 03/01/20 Alcohol intake: never Substance use: current Substance use type: does not use Do You Feel Safe in your Home?: Yes Lack of Transportation: No Lack of Food: Never True Current Housing: I Have Housing Concerned About Future Housing: No Difficulty Paying Gas/Electric Bills: No Difficulty Paying for Meds: No Currently Unemployed: YES Education: Associate Degree Difficulty w/ Childcare
[2023-11-12] MEDS: ceFAZolin 2 GM/D5W 50 ML 2 GM/50 ML BAG IVPB (12:21)
[2023-11-12] MEDS: BUPivacaine HCL 0.5% 10 ML AMP INFILTRATE (12:29)
[2023-11-12] MEDS: LIDO 1%/EPINEPHRINE 1:100,000 50 ML VIAL 10 ML INFILTRATE (12:30)
[2023-11-12 13:00] VITALS: BP 118/70; PULSE 72; RESP 14; O2SAT 100
[2023-11-12] MEDS: LACTATED RINGERS 1,000 ML 30 ML IV CONT (13:00)
[2023-11-12 13:30] VITALS: BP 119/63; PULSE 79; RESP 16
[2023-11-12] MEDS: oxyCODONE HCL (*CRX) 5 MG TAB IR PO (13:33)
[2023-11-12 14:00] VITALS: BP 110/70; PULSE 77; RESP 16
== END 2023-11-12 14:11 | disposition home or self-care (01) ==
PROVIDERS: PCP Family Medicine; Visit Provider Plastic Surgery
PROC: (CPT 25112; principal; 2023-11-12 12:15)
PROC: (CPT 25112; 2023-11-12 12:15)
DX: G56.22 Lesion of ulnar nerve, left upper limb (principal); M67.432 Ganglion, left wrist; I10 Essential (primary) hypertension; J44.9 Chronic obstructive pulmonary disease, unspecified; F41.9 Anxiety disorder, unspecified; M81.0 Age-related osteoporosis without current pathological fracture; K21.9 Gastro-esophageal reflux disease without esophagitis; J32.2 Chronic ethmoidal sinusitis; F17.210 Nicotine dependence, cigarettes, uncomplicated; Z79.51 Long term (current) use of inhaled steroids; Z79.891 Long term (current) use of opiate analgesic; Z98.890 Other specified postprocedural states; Z98.82 Breast implant status; Z92.21 Personal history of antineoplastic chemotherapy; Z85.118 Personal history of other malignant neoplasm of bronchus and lung; Z80.3 Family history of malignant neoplasm of breast; Z80.41 Family history of malignant neoplasm of ovary
CPT/HCPCS: 25112; 64718; 88305; A9270; J0690; J2405; J2704; J3010; J7120

== ENCOUNTER 2024-05-26 12:56 | Outpatient (CLI) | payer MEDICARE, OTHER, SELFPAY ==
--- NOTE | ~2024-05-26 | DEXA_ITS ---
Bone Density Report Name: CHAUNCEY BRADSHAW Age: 63 Sex: Female Ethnicity: White Date of : 1960 Indication: postmenopausal; screening for osteoporosis; height loss; cancer; asthma or emphysema; hysterectomy; Referring Provider: ESE HERNANDEZ Study: Bone densitometry was performed. Exam Date: May 26, 2024 Accession number: [id number] Bone Density: Region BMD T-score Z-score Classification AP Spine(L1-L4) 0.756 -2.6 -0.8 Osteoporosis Femoral Neck (Left) 0.747 -0.9 0.6 Normal Total Hip (Left) 0.887 -0.4 0.8 Normal Femoral Neck (Right) 0.704 -1.3 0.2 Osteopenia Total Hip (Right) 0.843 -0.8 0.5 Normal Total Hip Mean 0.865 -0.6 0.7 Normal World Health Organization criteria for BMD impression classify patients as: Normal (T-score at or above -1.0), Osteopenia (T-score between -1.0 and -2.5), or Osteoporosis (T-score at or below -2.5). 10-year Fracture Risk: FRAX not reported because: Some T-score for Spine Total or Hip Total or Femoral Neck at or below -2.5 Treated for osteoporosis Clinical Information Provided by Patient: Smokes Is being treated for osteoporosis Has used the following medications: Calcium Has the following medical conditions: Asthma or Emphysema, Cancer, Hysterectomy Patient maximum height was 65 Menopause Age: 40 Does not regularly consume dairy products Drinks caffeinated beverages Onset of menses at age 13 Number of children 3 Impression: The patient has osteoporosis, based on the Total Spine T-score. The patient has risk factors, including: smoking. Discussion: It is important to ask patients whether they are taking their medications and to encourage continued and appropriate compliance with their osteoporosis therapies to reduce fracture risk. It is also important to review their risk factors and encourage appropriate calcium and vitamin D intakes, exercise, fall prevention and other lifestyle measures. Follow-Up: Consider a repeat BMD and Vertebral Fracture Assessment (VFA) exam in 2 years or sooner if medically necessary, to reassess this patient's status. Reported by: CARLO on 05/26/2024 1:27:00 PM. Reviewed, dictated and finalized at location [facility]
--- OUTSIDE RECORDS SUMMARY | 2024-05-26 13:53 | XMS_ITS | Clinical Summary ---
Author Organization [facility] Address [address] [place] [address] Care Team Providers Care Blanket Binder Name Role Phone Sol Burns MD Primary Care Provider Allergies Active Allergy Reactions Criticality Noted Date Comments Sulfa (Sulfonamide Antibiotics) Hives Medium 10/26 Medications aclidinium (TUDORZA PRESSAIR) 400 mcg/actuation inhaler Active ipratropium-albu terol (DUO-NEB) 0.5-2.5 mg/3 mL nebulizer solution as needed 02/19/2019 Active INCRUSE ELLIPTA 62.5 mcg/actuation blister with device 02/24/2019 Active varenicline (CHANTIX DELROY) 0.5 mg (11)- 1 mg (42) tablet Take by mouth 2 (two) times a day Active Active Problems Problem Noted Date Diagnosed Date Adenocarcinoma of right lung 11/03/2014 Surgical History Surgery Date Site/Laterality Comments [place] TOTAL ABDOMINAL HYSTERECT W/WO RMVL TUBE OVARY Hysterectomy - (Added by TW Conv) MASTECTOMY Mastectomy Left Breast - (Added by TW Conv) MASTECTOMY Mastectomy Right Breast - (Added by TW Conv) [place] COLONOSCOPY FLX DX W/RADHA J SPEC WHEN PFRMD Colonoscopy (Fiberoptic) - (Added by TW Conv) [place] ESOPHAGOGASTRODUODENOSCOP Y TRANSORAL DIAGNOSTIC Diagnostic Esophagogastroduodenoscopy - (Added by TW Conv) Medical History Medical History Date Comments Infectious mononucleosis wit hout complication Mononucleosis - (Added by TW Conv) Personal history of tuberculosis History of tuberculosis - (Added by TW Conv) 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 - (Added by T W Conv) Personal history of other di seases of the digestive system History of hiatal hernia - ( Added by Conv) Personal history of other di seases of the digestive system History of esophageal reflux - (Added by Conv) Family History Medical History Relation Name Comments Colon cancer Father Colon cancer - (Added by Conv) Breast cancer Mother Family history of malignant neoplasm of breast - (Added by Conv) Ovarian cancer Mother Family histor y of ovarian cancer - (Added by TW Conv) Relation Name Status Comments Father Mother Social History Tobacco Use Types Packs/Day Years Used Date Smoking Tobacco: Every Day Smokeless Tobacco: Never Tobacco Cessation:Ready to Q uit: Yes; Counseling Given: Yes Comments:pt taking chantix Comments Unknown Sex and Gender Information Value Date Recorded Sex Assigned at Not on file Legal Sex Female 3:18 AM SUPERVISOR ELECTRIC MOTOR TESTING Gender Identity Not on file Sexual Orientation Not on file Obstetrics History Last Filed Vital Signs Vital Sign Reading Time Taken Comments Blood Pressure 122/80 05/25/2020 9:32 AM SUPERVISOR ELECTRIC MOTOR TESTING Pulse 84 05/25/2020 9:32 AM SUPERVISOR ELECTRIC MOTOR TESTING Temperature 36.3 ??C (97.3 ??F) 05/25/2020 9:32 AM CS T Respiratory Rate 18 05/25/2020 9:32 AM SUPERVISOR ELECTRIC MOTOR TESTING Oxygen Saturation 97% 05/25/2020 9:32 AM SUPERVISOR ELECTRIC MOTOR TESTING Inhaled Oxygen Concentration - - Weight 77.7 kg (171 lb 3.2 oz) 05/25/2020 9:32 A M SUPERVISOR ELECTRIC MOTOR TESTING Height 160 cm (5' 2.99 ) 05/27/2019 10:16 AM SUPERVISOR ELECTRIC MOTOR TESTING Body Mass Index 30.33 05/27/2019 10:16 AM SUPERVISOR ELECTRIC MOTOR TESTING Plan of Treatment Not on file Insurance [facility] CLAIMS [facility] CLAIMS [facility] Care Teams Blanket Binder Relationship Specialty Start Date End Date Sol Burns MD [address] [place] [address] PCP - General 06/09/17
--- OUTSIDE RECORDS SUMMARY | 2024-05-26 13:53 | XMS_ITS | Continuity of Care Document ---
Author Name [facility] Organization [facility] Care Team Providers Care C Programmer Name Role Phone [facility] Unavailable Unavailable Problems Combined list of problems from Department of Defense and Veterans Affairs facilities. It does not include entries that were removed or entered in error. Problem Status Onset Date Problem Type Date of Resolution Comments Source visit for: laboratory Active Condition DoD osteopenia Active Condition DoD Vaginal Pap Smear Active Condition DoD routine gynecological exam with cervical pap smear Inactive Condition DoD visit for: postsurgical exam Inactive Condition Given inco mplete colonoscopy, would rec BE. Pt to have bilateral prophylactic mastectomies with reconstruction by civilian surgeon next month. OK to wait until after that to do BE. Path results given to pt. DoD red blood in bowel movement (hematochezia) Active Condition Colonoscopy a nd BE discussed. Pt desires colonoscopy. Risks (bleeding, infection, perforation, incomplete study) reviewed. Will schedule. DoD breast pain Active Condition DoD visit for: screening malignant neoplasm colon Inactive Condition DoD genetic susceptibility to malignant neoplasm breast Active Condition referred to heme-onc for counseling re breast CA risk and poss of elective mastecotomy. DoD peptic ulcer Active Condition DoD breast fibrocystic disease Active Condition DoD nicotine dependence continuous Active Condition [facility]. DoD menopausal disorder Active Condition Adviced soy mil d consumption. DoD palpitations Active Condition Again, in light of negative lab work-up, this is most likely due to underlying menopausal symptoms. However, given complaint, will obtain Holter Monitor to r/o arrythmia. Minimize stimulant intake to include caffeine and tobacco. DoD dizziness Active Condition Re-assured by non-focal neurolgoical exam. Jai. given underlying menopausal symptoms, this is most likely hormonally-relate d. Pt re-assured. Negative EST. DoD Medications Combined list of outpatient medications from Department of Defense and Veterans Affairs facilities.Medications provided include 1) outpatient medications from the last 15 months, and 2) patient-reported medications. Medication Details Route Status Patient Instructions Prescription Expires Prescription Number Last Dispense Date Ordering Provider Order Date Order Qty Source BREZPlaynomicsPHERE (budesonide /glycopyrro late/formot michael fumarate), 160-9-4.8, HFA AER AD, INHALATION, ASTRAZENECA , 10.7 g AER W/ADAP Active [id number] 4 2023 32.1 Pharmac y Data Transac tion Service Facilit y BREZTRI AEROSPHERE (budesonide /glycopyrro late/formot michael fumarate), 160-9-4.8, HFA AER AD, INHALATION, ASTRAZENECA , 10.7 g AER W/ADAP Active [id number] 3 2022 32.1 Pharmac y Data Transac tion Service Facilit y PRAVASTATIN SODIUM (PRAVASTATI N SODIUM), 10 MG, TABLET, ORAL, AVKARE, 1000 ea. BOTTLE Active [id number] 4 2023 90 Pharmac y Data Transac tion Service Facilit y Allergies, Adverse Reactions, Alerts Combined list of allergies from Department of Defense and Veterans Affairs facilities. It does not include entries that were removed or entered in error. Substance Category Reaction Severity Reaction type Status Date Reported Comments Source SULFA-DRUGS Drug allergy (disorder) active 09/10/2016 DoD Encounters Combined list of: 1) Encounters from Department of Veterans Affairs facilities going back up to thelast 18 months. 2) Encounters from the Department of Defense facilities going back up to 280 months. Location Location Details Encounter Type Encounter Number Reason For Visit Attending Provider ADM Date DC Date Status Disposition Source CRISTIAN Salvador DIRECT TO [facility] FROM OTHER THAN ER OR [facility] [id number] 06/28 DISCHARGED HOME [place](Production Machine Shop Supervisor al Medicine) OUTPATIENT [id number] Dizzine ss SHIV RADHACHRISTOPHER BORGES 10/03 Released w/o Limitations [facility] Salvador(Inte rnal Medicin e) CRISTIAN Salvador(Le General Surgery) OUTPATIENT [id number] 44 y.o. female with strong FHx of Breast CA, now with one week of dark bila ZINA PATEL 06/19 Released w/o Limitations [facility] Salvador(Le General Surgery ) [facility] Salvador(Family Practice) OUTPATIENT [id number] F/U FOR STOMACH PROBLEM S FAUSTINOCHUCK Lexi 01/16 [place]/o Limitations [place] [id number] heme pos stool SHASHI PATELGABRIELA Wiseman 02/11 Released w/o Limitations [place] [id number] breast cancer risk BRCA Positiv e and still having nipple dischar ge 8 months JORGEZINA IVEY 02/18 Released w/o Limitations [place] , [place](Le General Surgery [place] [id number] Eval for Colonos copy. ZACHARY SUGGS 03/12 Released w/o Limitations [place] , [place]ST[place](Le General Surgery ) [place](Le General Surgery) OUTPATIENT [id number] f/u colo Mar ZACHARY SUGGS 04/30 Released w/o Limitations [place] [facility]ST[facility](Le General Surgery ) [address] [place] [address] [facility])(Circular Shear Operator ecology) OUTPATIENT [id number] Pas entered the order ALBARO OLIVIER 08/01 Released w/o Limitations [address] [place] [address])(G ynecolo gy) [address] [place] [address])(Circular Shear Operator ecology) TELE CONSULT [id number] results ALBARO OLIVIER 08/[address] [place] [address] [facility])(G ynecolo gy) [address] [place] [address])(Circular Shear Operator ecology) TELE CONSULT [id number] results ALBARO OLIVIER 08/[address] [place] [address])(G ynecolo gy) Procedures Combined list of: 1) Procedures from Department of Veterans Affairs facilities going back up to thelast 18 months, not all VA non-surgical procedures are included; 2) All procedures from the Department of Defense facilities. Procedure Procedure Type Code Date Perfomer Comments Sourc e Screening papanicolaou smear; obtaining, preparing and conveyance of cervical or vaginal smear to laboratory 08/02/19 10 ALBARO OLIVIER [facility] Cardiac Stre Test With Physician Supervision, Interpretation, And Report Cardiac Stress Test With Physician Supervision, Interpretation, And Report [id number] 10/04/19 05 GREGORY CHANEY Informed consent obtained; pt wish to proceed. Method- Standard Lionel Baseline EKG- NST Findings- Pt tolerated procedure well. Appropriate HR and BP resposne to exercise. Achieved 90% MPHR during Stage 3. No ischemic changes during exercise and resting phase. No recurrence of dizziness/CP during the procedure. Conclusion- Normal EST. No evidenceof obstructive CAD. [facility] ECG Interpretation And Report Only ECG Interpretation And Report Only [id number] 10/04/19 05 GREGORY CHANEY EKG from August 30- NSR [facility] Social History Combined list of available smoking, tobacco, and other social history from Department of Defense and Veterans Affairs facilities. Social History Type Response Date Comment Sour e This section is an empty social history section. [facility]
--- OUTSIDE RECORDS SUMMARY | 2024-05-26 13:53 | XMS_ITS ---
Author Organization [facility] Address [address] [place] [address] Care Team Providers Care Protocol Manager Name Role Phone Sol Burns MD Primary Care Provider Active Problems Problem Noted Date Diagnosed Date Adenocarcinoma of right lung 11/03/2014 Current Oncology Plans No current plan information found. Past Plans No past plan information found. Radiation Treatments * No radiation treatments are documented for this patient in [facility]. Treatments may have been administered in another system. Lifetime Dose Tracking * Chemical Lifetime Dose Automatic Entry Manual Entr y DLP 2,081 mGycm 2,081 mGycm 0 mGycm
--- OUTSIDE RECORDS SUMMARY | 2024-05-26 13:53 | XMS_ITS | Referral Summary ---
Author Organization [facility] Address [address] [place] [address] Care Team Providers Care Four H Agent Name Role Phone Sol Burns MD Primary [...] Diagnosed Date Adenocarcinoma of right lung 11/03/2014 Social History Tobacco Use Types Packs/Day Years Used Date Smoking Tobacco: Every Day Smokeless Tobacco: Never Tobacco Cessation:Ready to Q uit: Yes; Counseling Given: Yes Comments:pt taking chantix Comments Unknown Sex and Gender Information Value Date Recorded Sex Assigned at Not on file Legal Sex Female 3:18 AM EMISSION TECHNICIAN Gender Identity Not on file Sexual Orientation Not on file Last Filed Vital Signs Vital Sign Reading Time Taken Comments Blood Pressure 122/80 05/25/2020 9:32 AM EMISSION TECHNICIAN Pulse 84 05/25/2020 9:32 AM EMISSION TECHNICIAN Temperature 36.3 ??C (97.3 ??F) 05/25/2020 9:32 AM CS T Respiratory Rate 18 05/25/2020 9:32 AM EMISSION TECHNICIAN Oxygen Saturation 97% 05/25/2020 9:32 AM EMISSION TECHNICIAN Inhaled Oxygen Concentration - - Weight 77.7 kg (171 lb 3.2 oz) 05/25/2020 9:32 A M EMISSION TECHNICIAN Height 160 cm (5' 2.99 ) 05/27/2019 10:16 AM EMISSION TECHNICIAN Body Mass Index 30.33 05/27/2019 10:16 AM EMISSION TECHNICIAN Plan of Treatment Not on file Insurance CLAIMS [facility] Care Teams Four H Agent Relationship Specialty Start Date End Date oSl Burns MD [address] [facility] [address] [place] [address] PCP - General 06/09/17
== END 2024-05-26 12:57 | disposition home or self-care (01) ==
LOC: ANHIMG 12:57
PROVIDERS: PCP Family Medicine; Visit Provider Physician Assistant
DX: M81.0 Age-related osteoporosis without current pathological fracture (principal); M85.851 Other specified disorders of bone density and structure, right thigh; Z78.0 Asymptomatic menopausal state
CPT/HCPCS: 77080

== ENCOUNTER 2024-06-01 10:49 | Outpatient (CLI) | payer MEDICARE, OTHER, SELFPAY ==
--- NOTE | ~2024-06-01 | CT_ITS ---
CT Scan of the Chest without Contrast: Clinical Indication: Lung cancer screening, nicotine dependence Technique: Contiguous sections were acquired throughout the chest without intravenous contrast. Dose reduction technique was used on this scan by utilizing automated exposure control and iterative recon struction technique. The dose-length product (DLP) was 79.68 mGy-cm. COMPARISON: 11/08/2022 Findings: There is no evidence of any significant mediastinal, hilar or axillary lymphadenopathy. Small calcifi ed mediastinal and right hilar lymph nodes are present. Coronary artery calcifications are present. There is no evidence of pleural or pericardial effusion. Status post right upper lobectomy. There is stable biapical scarring. Moderate emphysema present. No pulmonary nodule evident. Images through the upper abdomen reveal no abnormalities. Impression: Lung RADS 2: Benign appearance. 12 month follow-up screening CT advised. Reviewed, dictated and finalized at [facility]. TY SHERIFF Impression: Lung RADS 2: Benign appearance. 12 month follow-up screening CT advised.
--- OUTSIDE RECORDS SUMMARY | 2024-06-01 11:29 | XMS_ITS | Continuity of Care Document ---
Author Name [facility] Organization [facility] Care Team Providers Care Driving School Instructor Name Role Phone [facility] Unavailable Unavailable Problems Combined list of problems [...] Ordering Provider Order Date Order Qty Source BREZPanXPHERE (budesonide /glycopyrro late/formot michael fumarate), 160-9-4.8, HFA AER AD, INHALATION, ASTRAZENECA , 10.7 g AER W/ADAP Active [id number] 4 2023 32.1 Pharmac y Data Transac tion Service Facilit y BREZTRI AEROSPHERE (budesonide /glycopyrro late/formot michael fumarate), 160-9-4.8, HFA AER AD, INHALATION, ASTRAZENECA , 10.7 g AER W/ADAP Active [id number] 3 2022 32.1 Pharmac y Data Transac tion Service Facilit y PRAVASTATIN SODIUM (PRAVASTATI N SODIUM), 10 MG, TABLET, ORAL, AVKARE, 1000 ea. BOTTLE Active [id number] 4 2023 90 Pharmac y Data Transac [...] Status Disposition Source CRISTIAN Salvador DIRECT TO [facility] FROM OTHER THAN ER OR [facility] [id number] 06/28 DISCHARGED HOME [place](Sole Rounder al Medicine) OUTPATIENT [id number] Dizzine ss SHIV RADHACHRISTOPHER BORGES 10/03 Released w/o Limitations [facility] [place](Inte rnal Medicin e) CRISTIAN Salvador(Le General Surgery) OUTPATIENT [id number] 44 y.o. female with strong FHx of Breast CA, now with one week of dark bila ZINA PATEL 06/19 Released w/o Limitations [facility] [place](Le General Surgery ) [facility] Salvador(Family Practice) OUTPATIENT [id number] F/U FOR STOMACH PROBLEM S FAUSTINOCHUCK Lexi 01/16 Released w/o Limitations [place]PATIENT [id number] heme pos stool JORGESHASHI CANTORGABRIELA Wiseman 02/11 Released w/o Limitations [place]PATIENT [id number] breast cancer risk BRCA Positiv e and still having nipple dischar ge 8 months ZINA PATEL 02/18 Released w/o Limitations [place] , [facility](Le General Surgery ) [facility]) OUTPATIENT [id number] Eval for Colonos copy. ZACHARY SUGGS 03/12 Released w/o Limitations [place] [facility](Le General Surgery ) [facility]) OUTPATIENT [id number] f/u colo Mar ZACHARY SUGGS 04/30 Released w/o Limitations [place] [facility]ST[facility](Le General Surgery ) [address] [place] [address] [facility])(Coal Sampler ecology) OUTPATIENT [id number] Pas entered the order ALBARO OLIVIER 08/01 Released w/o Limitations [address] [place] [address])(G ynecolo gy) [address] [place] [address])(Coal Sampler ecology) TELE CONSULT [id number] results ALBARO OLIVIER 08/[address] [place] [address] [facility])(G ynecolo gy) [address] [place] [address])(Coal Sampler ecology) TELE CONSULT [id number] results ALBARO OLIVIER 08/[address] [place] [address])(G ynecolo gy) Procedures Combined list of: 1) Procedures from Department of Veterans Affairs facilities going back up to thelast 18 months, not all VA non-surgical procedures are included; 2) All procedures from the Department of Defense facilities. Procedure Procedure Type Code Date Perfomer Comments Sourc e SCREENING PAPANICOLAOU SMEAR; OBTAINING, PREPARING AND CONVEYANCE OF CERVICAL OR VAGINAL SMEAR TO LABORATORY 08/02/19 10 [facility] INJECTION, MIDAZOLAM HCL, PER 1 MG 04/04/20 06 [facility] ELECTROCARDIOGRAM, ROUTINE ECG WITH AT LEAST 12 LEADS; INTERPRETATION AND REPORT ONLY 10/04/19 05 [facility] ELECTROCARDIOGRAM, ROUTINE ECG WITH AT LEAST 12 LEADS; WITH INTERPRETATION AND REPORT 08/29/19 05 [facility] POSTOPERATIVE FOLLOW-UP VISIT, NORMALLY INCLUDED IN THE SURGICAL PACKAGE, INDICATE THAT EVALUATION & MANAGEMENT SERVICE WAS PERFORMED DURING A POSTOPERATIVE PERIOD REASON RELATED ORIGINAL PROCEDURE 08/14/19 05 [facility] POSTOPERATIVE FOLLOW-UP VISIT, NORMALLY INCLUDED IN THE SURGICAL PACKAGE, INDICATE THAT EVALUATION & MANAGEMENT SERVICE WAS PERFORMED DURING A POSTOPERATIVE PERIOD REASON RELATED ORIGINAL PROCEDURE 07/10/19 05 [facility] LAPAROSCOPICALLY ASSISTED VAGINAL HYSTERECTOMY (LAVH) 06/30/19 05 [facility] LAPAROSCOPIC REMOVAL OF BOTH OVARIES AND TUBES AT SAME OPERATIVE EPISODE 06/30/19 05 [facility] ENDOMETRIAL SAMPLING (BIOPSY) WITH OR WITHOUT ENDOCERVICAL SAMPLING (BIOPSY), WITHOUT CERVICAL DILATION, ANY METHOD (SEPARATE PROCEDURE) 04/03/20 04 [facility] SCREENING PAPANICOLAOU SMEAR; OBTAINING, PREPARING AND CONVEYANCE OF CERVICAL OR VAGINAL SMEAR TO LABORATORY 03/06/20 04 [facility]D ALBUTEROL,ALL FORMULATIONS ISOMERS,INHALATION SOLUTION ADMINISTERED THRU DME,CONCENTRATED FORM, PER 1 MG (ALBUTEROL)/PER 0.5 MG(LEVALBUTEROL) 07/16/19 04 DoD SCREENING PAPANICOLAOU SMEAR; OBTAINING, PREPARING AND CONVEYANCE OF CERVICAL OR VAGINAL SMEAR TO LABORATORY 10/26/19 03 [facility]D INJECTION, CEFTRIAXONE SODIUM, PER 250 MG 07/12/19 03 [facility] INJECTION, LORAZEPAM, 2 MG 03/12/20 02 DoD SCREENING PAPANICOLAOU SMEAR; OBTAINING, PREPARING AND CONVEYANCE OF CERVICAL OR VAGINAL SMEAR TO LABORATORY 08/11/19 02 [facility] TEMPERATURE GRADIENT STUDIES 05/15/19 02 [facility] CYTOPATHOLOGY, SMEARS, CERVICAL OR VAGINAL, UP TO THREE SMEARS; SCREENING BY WOMEN'S HEALTH CARE NURSE PRACTITIONER UNDER PHYSICIAN SUPERVISION 03/05/20 00 DoD CONIZATION OF CERVIX 9 95 DoD CONIZATION OF CERVIX 9 95 [facility] Screening papanicolaou smear; obtaining, preparing and conveyance of cervical or vaginal smear to laboratory 08/02/19 10 ALBARO OLIVIER DoD Cardiac Stre Test With Physician Supervision, Interpretation, And Report Cardiac Stress Test With Physician Supervision, Interpretation, And Report [id number] 10/04/19 05 GREGORY CHANEY Informed consent obtained; pt wish to proceed. Method- Standard Lionel Baseline EKG- NST Findings- Pt tolerated procedure well. Appropriate HR and BP resposne to exercise. Achieved 90% MPHR during Stage 3. No ischemic changes during exercise and resting phase. No recurrence of dizziness/CP during the procedure. Conclusion- Normal EST. No evidenceof obstructive CAD. [facility] ECG Interpretation And Report Only ECG Interpretation And Report Only [id number] 10/04/19 05 RADHA CHANEY-KATERINA BORGES EKG from August 30- NSR [facility] Social History Combined list of available smoking, tobacco, and other social history from Department of Defense and Veterans Affairs facilities. Social History Type Response Date Comment Sour e This section is an empty social history section. [facility]
--- OUTSIDE RECORDS SUMMARY | 2024-06-01 11:29 | XMS_ITS | Clinical Summary ---
Author Organization [facility] Address [address] [place] [address] Care Team Providers Care Manager Pe Name Role Phone Sol Burns MD Primary [...] 11/03/2014 Surgical History Surgery Date Site/Laterality Comments [place] TOTAL ABDOMINAL HYSTERECT W/WO RMVL TUBE OVARY Hysterectomy - (Added by TW Conv) MASTECTOMY Mastectomy Left Breast - (Added by TW Conv) MASTECTOMY Mastectomy Right Breast - (Added by TW Conv) [place] COLONOSCOPY FLX DX W/RADHA J SPEC WHEN PFRMD Colonoscopy (Fiberoptic) - (Added by TW Conv) [place] ESOPHAGOGASTRODUODENOSCOP Y TRANSORAL DIAGNOSTIC Diagnostic Esophagogastroduodenoscopy - [...] on file Legal Sex Female 3:18 AM METERMAN Gender Identity Not on file Sexual Orientation Not on file Obstetrics History Last Filed Vital Signs Vital Sign Reading Time Taken Comments Blood Pressure 122/80 05/25/2020 9:32 AM METERMAN Pulse 84 05/25/2020 9:32 AM METERMAN Temperature 36.3 ??C (97.3 ??F) 05/25/2020 9:32 AM CS T Respiratory Rate 18 05/25/2020 9:32 AM METERMAN Oxygen Saturation 97% 05/25/2020 9:32 AM METERMAN Inhaled Oxygen Concentration - - Weight 77.7 kg (171 lb 3.2 oz) 05/25/2020 9:32 A M METERMAN Height 160 cm (5' 2.99 ) 05/27/2019 10:16 AM METERMAN Body Mass Index 30.33 05/27/2019 10:16 AM METERMAN Plan of Treatment Not on file Insurance [facility] CLAIMS [facility] CLAIMS [facility] Care Teams Manager Pe Relationship Specialty Start Date End Date Sol Burns MD [address] [place] [address] PCP - General 06/09/17
--- OUTSIDE RECORDS SUMMARY | 2024-06-01 11:29 | XMS_ITS ---
Author Organization [facility] Address [address] [place] [address] Care Team Providers Care Pneumatic Tube Operator Name Role Phone Sol Burns MD Primary Care Provider Active Problems Problem Noted Date Diagnosed Date Adenocarcinoma of right lung 11/03/2014 Current Oncology Plans No current plan information found. Past Plans No past plan information found. Radiation Treatments * No radiation treatments are documented for this patient in [facility]. Treatments may have been administered in another system. Lifetime Dose Tracking * Chemical Lifetime Dose Automatic Entry Manual Entr y DLP 2,081 mGycm 2,081 mGycm 0 mGycm
--- OUTSIDE RECORDS SUMMARY | 2024-06-01 11:29 | XMS_ITS | Referral Summary ---
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 Gender Identity Not on file Sexual Orientation Not on file Last Filed Vital Signs Vital Sign Reading Time Taken Comments Blood Pressure 122/80 05/25/2020 9:32 AM WHE[employer] O[employer] FLAKE MILLER Pulse 84 05/25/2020 9:32 AM WHE[employer] FLAKE MILLER Temperature 36.3 ??C (97.3 ??F) 05/25/2020 9:32 AM CS T Respiratory Rate 18 05/25/2020 9:32 AM [employer] F[employer] MILLER Oxygen Saturation 97% 05/25/2020 9:32 AM WHE[employer] FLAKE MILLER Inhaled Oxygen Concentration - - Weight 77.7 kg (171 lb 3.2 oz) 05/25/2020 9:32 A M [employer] MILLER Height 160 cm (5' 2.99 ) 05/27/2019 10:16 AM WHE[employer] FLAKE MILLER Body Mass Index 30.33 05/27/2019 10:16 AM [employer] F[employer]KE MILLER Plan of Treatment Not on file Insurance CLAIMS FOR LIFE [facility] Care Teams Mixer Tender Relationship Specialty Start Date End Date Sol Burns MD [address] [facility] [address] [place] [address] PCP - General 06/09/17
== END 2024-06-01 10:50 | disposition home or self-care (01) ==
PROVIDERS: PCP Family Medicine; Visit Provider Student in an Organized Health Care Education/Training Program
DX: Z12.2 Encounter for screening for malignant neoplasm of respiratory organs (principal); Z87.891 Personal history of nicotine dependence
CPT/HCPCS: 71271

== ENCOUNTER 2024-07-13 12:37 | Outpatient (CLI) | payer MEDICARE, OTHER, SELFPAY ==
--- OUTSIDE RECORDS SUMMARY | 2024-07-13 13:53 | XMS_ITS | Referral Summary ---
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 Gender Identity Not on file Sexual Orientation Not on file Last Filed Vital Signs Vital Sign Reading Time Taken Comments Blood Pressure 122/80 05/25/2020 9:32 AM RUNSTITCHING MACHINE OPERATOR Pulse 84 05/25/2020 9:32 AM RUNSTITCHING MACHINE OPERATOR Temperature 36.3 C (97.3 F) 05/25/2020 9:32 AM RUNSTITCHING MACHINE OPERATOR Respiratory Rate 18 05/25/2020 9:32 AM RUNSTITCHING MACHINE OPERATOR Oxygen Saturation 97% 05/25/2020 9:32 AM RUNSTITCHING MACHINE OPERATOR Inhaled Oxygen Concentration - - Weight 77.7 kg (171 lb 3.2 oz) 05/25/2020 9:32 A M RUNSTITCHING MACHINE OPERATOR Height 160 cm (5' 2.99 ) 05/27/2019 10:16 AM RUNSTITCHING MACHINE OPERATOR Body Mass Index 30.33 05/27/2019 10:16 AM RUNSTITCHING MACHINE OPERATOR Plan of Treatment Not on file Insurance CLAIMS CLAIMS FOR LIFE [facility] Care Teams Leg Man Relationship Specialty Start Date End Date Sol Burns MD [address] [facility] [address] [place] [address] PCP - General 06/09/17
--- OUTSIDE RECORDS SUMMARY | 2024-07-13 13:53 | XMS_ITS | Clinical Summary ---
Author Organization [facility] Address [address] [place] [address] Care Team Providers Care Cone Examiner Name Role Phone Sol Burns MD Primary [...] 11/03/2014 Surgical History Surgery Date Site/Laterality Comments AL TOTAL ABDOMINAL HYSTERECT W/WO RMVL TUBE OVARY Hysterectomy - (Added by TW Conv) MASTECTOMY Mastectomy Left Breast - (Added by TW Conv) MASTECTOMY Mastectomy Right Breast - (Added by TW Conv) AL COLONOSCOPY FLX DX W/RADHA J SPEC WHEN PFRMD Colonoscopy (Fiberoptic) - (Added by TW Conv) AL ESOPHAGOGASTRODUODENOSCOP Y TRANSORAL DIAGNOSTIC Diagnostic Esophagogastroduodenoscopy - [...] y of ovarian cancer - (Added by Conv) Relation Name Status Comments Father Mother Social History Tobacco Use Types Packs/Day Years Used Date Smoking Tobacco: Every Day Smokeless Tobacco: Never Tobacco Cessation:Ready to Q uit: Yes; Counseling Given: Yes Comments:pt taking chantix Comments Unknown Sex and Gender Information Value Date Recorded Sex Assigned at Not on file Legal Sex Female 3:18 AM ABLE SEAMAN Gender Identity Not on file Sexual Orientation Not on file Obstetrics History Last Filed Vital Signs Vital Sign Reading Time Taken Comments Blood Pressure 122/80 05/25/2020 9:32 AM ABLE SEAMAN Pulse 84 05/25/2020 9:32 AM ABLE SEAMAN Temperature 36.3 C (97.3 F) 05/25/2020 9:32 AM ABLE SEAMAN Respiratory Rate 18 05/25/2020 9:32 AM ABLE SEAMAN Oxygen Saturation 97% 05/25/2020 9:32 AM ABLE SEAMAN Inhaled Oxygen Concentration - - Weight 77.7 kg (171 lb 3.2 oz) 05/25/2020 9:32 A M ABLE SEAMAN Height 160 cm (5' 2.99 ) 05/27/2019 10:16 AM ABLE SEAMAN Body Mass Index 30.33 05/27/2019 10:16 AM ABLE SEAMAN Plan of Treatment Not on file Insurance [facility] CLAIMS [facility] CLAIMS [facility] Care Teams Cone Examiner Relationship Specialty Start Date End Date Sol Burns MD [address] [facility] [address] [place] [address] PCP - General 06/09/17
--- OUTSIDE RECORDS SUMMARY | 2024-07-13 13:53 | XMS_ITS ---
Author Organization [facility] Address [address] [place] [address] Care Team Providers Care Family Assessment Worker Name Role Phone Slo Burns MD Primary Care Provider Active Problems Problem Noted Date Diagnosed Date Adenocarcinoma of right lung 11/03/2014 Current Treatment and Therapy Plans No current plan information found. Past Treatment and Therapy Plans No past plan information found. Lifetime Dose Tracking * Chemical Lifetime Dose Automatic Entry Manual Entr y DLP 2,081 mGycm 2,081 mGycm 0 mGycm
[2024-07-13 14:06] LABS: Influenza A QL RT-PCR Negative (Negative); Influenza B QL RT-PCR Negative (Negative); RSV RNA, RT-PCR Negative (Negative); SARS-CoV-2 RNA PCR Negative (Negative)
== END 2024-07-13 12:38 | disposition home or self-care (01) ==
LOC: ANHLAB 12:38
PROVIDERS: PCP Family Medicine; Visit Provider Student in an Organized Health Care Education/Training Program
DX: R50.9 Fever, unspecified (principal)
CPT/HCPCS: 87637